=== PATIENT | male | born 1935 | race Caucasian/White ===

== ENCOUNTER 2017-12-11 10:46 | Emergency (ER) | payer MEDICARE, OTHER ==
[~2017-12-11] VITALS: Ht 180.3 cm; Wt 81.7 kg
[~2017-12-11 10:46] MED LIST: AMOCLA875 PO; ASPI81EC PO; DIGO.125 PO; DIGO.25 PO; JANTOVEN; Jantoven6 MG PO; LOSA25; LOSA25 PO; LOVA20 PO; METO100 PO; METO50; POTCHL20ER PO; WARF1 PO; WARF6 PO
[2017-12-11] MEDS ORDERED: Jantoven6 MG PO (10:56)
[2017-12-11 11:11] LABS: Source, Urine Clean Catch
[2017-12-11 11:14] LABS: Bilirubin, Urine Neg (Neg); Blood, Urine 5+ (Neg); Glucose Qualitative, Urine Neg (Neg); Ketones, Urine Neg (Neg); Leukocyte Esterase, Urine 1+ (Neg); Nitrite, Urine Neg (Neg); Protein, Urine 1+ (Neg); Specific Gravity, Urine 1.015 (1.003-1.022); Urobilinogen, Urine 2+ (Normal)
[2017-12-11 11:28] LABS: Appearance, Urine Clear (Clear); Color, Urine Yellow (P-Yellow)
[2017-12-11 11:29] LABS: Red Blood Cells, Urine TNTC /hpf (0-2); White Blood Cells, Urine 0-2 /hpf (0-5)
[2017-12-11 11:30] LABS: Bacteria Rare /hpf; Squamous Epithelial Cells Rare /hpf (Few)
[2017-12-11 11:42] LABS: BASOPHILS ABSOLUTE AUTO 0.05 K/mm3 (0.00-0.23); BASOPHILS PERCENT AUTO 1 % (0-2); EOSINOPHILS ABSOLUTE AUTO 0.09 K/mm3 (0.00-0.68); EOSINOPHILS PERCENT AUTO 1 % (0-6); Hematocrit 42.3 % (37.0-53.0); Hemoglobin 13.5 g/dL (13.5-17.5); IMMATURE GRAN ABSOLUTE AUTO 0.01 K/mm3 (0.00-0.10); IMMATURE GRAN PERCENT AUTO 0 % (0-1); LYMPHOCYTES ABSOLUTE AUTO 2.56 K/mm3 (0.84-5.20); LYMPHOCYTES PERCENT AUTO 32 % (21-46); MONOCYTES ABSOLUTE AUTO 0.66 K/mm3 (0.16-1.47); MONOCYTES PERCENT AUTO 8 % (4-13); Mean Corpuscular HGB 29.9 pg (26.0-34.0); Mean Corpuscular HGB Conc 31.9 g/dL (31.5-36.5); Mean Corpuscular Volume 94 fL (80-100); Mean Platelet Volume 10.9 fL (9.1-12.4); NEUTROPHILS ABSOLUTE AUTO 4.58 K/mm3 (1.96-9.15); NEUTROPHILS PERCENT AUTO 58 % (41-73); Platelet Count 125 K/mm3 (150-400); RDW Coefficient Variation 13.7 % (11.7-14.2); RDW Standard Deviation 47.4 fL (35.1-46.3); Red Blood Cell Count 4.51 M/mm3 (4.30-5.90); White Blood Cell Count 7.95 K/mm3 (4.00-11.30)
[2017-12-11 11:52] LABS: Prothrombin Time Results 21.3 Sec (9.7-11.5)
[2017-12-11 12:05] LABS: Alanine Aminotransfer (ALT/SGP 24 U/L (12-78); Albumin, Blood 3.5 g/dL (3.4-5.0); Albumin/Globulin Ratio 0.9 (0.8-1.8); Alk Phos 77 U/L (50-136); Anion Gap 8 mmol/L (6-16); Aspartate Aminotrans (AST/SGOT 26 U/L (12-37); Blood Urea Nitrogen 21 mg/dL (8-24); Bun/Creatinine Ratio 21.9 (12.0-20.0); CO2, Blood 28 mmol/L (21-32); Calcium, Blood 8.7 mg/dL (8.5-10.1); Chloride, Blood 105 mmol/L (98-108); Creatinine, Blood 0.96 mg/dL (0.60-1.20); Globulin, Blood 3.9 g/dL (2.2-4.0); Glomerular Filtration Rate >60 (60-); Glucose, Blood 159 mg/dL (70-99); Sodium, Blood 141 mmol/L (136-145); Total Protein, Blood 7.4 g/dL (6.4-8.2)
[2017-12-11] MEDS ORDERED: Norco 5-325 Ta1 EACH PO (13:12)
[2017-12-11] MEDS ORDERED: Flomax0.4 MG PO (13:12)
[2017-12-11] MEDS ORDERED: Zofran Odt4 MG SL (13:12)
[2017-12-11] MEDS ORDERED: Keflex500 MG PO (13:13)
== END 2017-12-11 14:32 | disposition home or self-care (01) ==
LOC: ER 10:46
PROVIDERS: Nurse Practitioner Family
DX: N13.2 Hydronephrosis with renal and ureteral calculous obstruction (principal); K57.30 Diverticulosis of large intestine without perforation or abscess without bleeding; I10 Essential (primary) hypertension; E78.00 Pure hypercholesterolemia, unspecified; Z79.899 Other long term (current) drug therapy; Z79.01 Long term (current) use of anticoagulants; Z90.49 Acquired absence of other specified parts of digestive tract; Z95.1 Presence of aortocoronary bypass graft; Z90.89 Acquired absence of other organs
CPT/HCPCS: 36415; 74176; 80053; 81001; 83690; 85025; 85610; 87086; 96361; 96374; 96375; 99284; J2270; J2405; J7030

== ENCOUNTER → 2018-07-23 | Outpatient (CLI) | payer MEDICARE, OTHER ==
[~2018-07-23] MED LIST changes: +Flomax0.4 MG PO; +Keflex500 MG PO; +Norco 5-325 Ta1 EACH PO; +Zofran Odt4 MG SL
[2018-07-23 18:09] LABS: Alanine Aminotransfer (ALT/SGP 22 U/L (12-78); Albumin, Blood 3.4 g/dL (3.4-5.0); Albumin/Globulin Ratio 1.1 (0.8-1.8); Alk Phos 76 U/L (50-136); Anion Gap 6 mmol/L (6-16); Aspartate Aminotrans (AST/SGOT 21 U/L (12-37); Bilirubin, Total 0.8 mg/dL (0.1-1.0); Blood Urea Nitrogen 17 mg/dL (8-24); Bun/Creatinine Ratio 18.6 (12.0-20.0); CO2, Blood 30 mmol/L (21-32); Calcium, Blood 8.8 mg/dL (8.5-10.1); Chloride, Blood 107 mmol/L (98-108); Creatinine, Blood 0.91 mg/dL (0.60-1.20); Globulin, Blood 3.1 g/dL (2.2-4.0); Glomerular Filtration Rate >60 (60-); Glucose, Blood 166 mg/dL (70-99); Potassium, Blood 4.5 mmol/L (3.5-5.5); Sodium, Blood 143 mmol/L (136-145); Total Protein, Blood 6.5 g/dL (6.4-8.2)
== END | disposition home or self-care (01) ==
LOC: LAB SHORT 16:41 → LAB 16:41
PROVIDERS: Internal Medicine Hematology & Oncology
DX: N20.0 Calculus of kidney (principal); E78.5 Hyperlipidemia, unspecified
CPT/HCPCS: 80053

== ENCOUNTER 2020-01-15 10:02 | Emergency (ER) | payer MEDICARE ==
[~2020-01-15] VITALS: Ht 175.3 cm; Wt 72.6 kg
[2020-01-15 11:01] LABS: BASOPHILS ABSOLUTE AUTO 0.02 K/mm3 (0.00-0.23); BASOPHILS PERCENT AUTO 1 % (0-2); EOSINOPHILS ABSOLUTE AUTO 0.03 K/mm3 (0.00-0.68); EOSINOPHILS PERCENT AUTO 1 % (0-6); Hematocrit 38.5 % (37.0-53.0); Hemoglobin 12.3 g/dL (13.5-17.5); IMMATURE GRAN ABSOLUTE AUTO 0.01 K/mm3 (0.00-0.10); IMMATURE GRAN PERCENT AUTO 0 % (0-1); LYMPHOCYTES ABSOLUTE AUTO 0.95 K/mm3 (0.84-5.20); LYMPHOCYTES PERCENT AUTO 22 % (21-46); MONOCYTES ABSOLUTE AUTO 0.29 K/mm3 (0.16-1.47); MONOCYTES PERCENT AUTO 7 % (4-13); Mean Corpuscular HGB Conc 31.9 g/dL (31.5-36.5); Mean Corpuscular Volume 94 fL (80-100); NEUTROPHILS ABSOLUTE AUTO 3.01 K/mm3 (1.96-9.15); NEUTROPHILS PERCENT AUTO 70 % (41-73); Platelet Count 87 K/mm3 (150-400); RDW Coefficient Variation 13.5 % (11.7-14.2); RDW Standard Deviation 46.3 fL (35.1-46.3); White Blood Cell Count 4.31 K/mm3 (4.00-11.30)
[2020-01-15 11:23] LABS: Alanine Aminotransfer (ALT/SGP 29 U/L (12-78); Albumin, Blood 3.2 g/dL (3.4-5.0); Alk Phos 84 U/L (50-136); Anion Gap 3 mmol/L (6-16); Aspartate Aminotrans (AST/SGOT 33 U/L (12-37); Bilirubin, Total 1.1 mg/dL (0.1-1.0); Blood Urea Nitrogen 19 mg/dL (8-24); Bun/Creatinine Ratio 20.7 (12.0-20.0); CO2, Blood 29 mmol/L (21-32); Calcium, Blood 8.6 mg/dL (8.5-10.1); Chloride, Blood 110 mmol/L (98-108); Creatinine, Blood 0.92 mg/dL (0.60-1.20); Globulin, Blood 3.3 g/dL (2.2-4.0); Glomerular Filtration Rate >60 (60-); Glucose, Blood 162 mg/dL (70-99); Potassium, Blood 4.2 mmol/L (3.5-5.5); Sodium, Blood 142 mmol/L (136-145); Total Protein, Blood 6.5 g/dL (6.4-8.2)
[2020-01-15] MEDS ORDERED: Motion Sickness25 M1 PO (12:03)
== END 2020-01-15 13:20 | disposition home or self-care (01) ==
LOC: ER 10:02
PROVIDERS: Emergency Medicine
DX: R42 Dizziness and giddiness (principal); E78.00 Pure hypercholesterolemia, unspecified; I10 Essential (primary) hypertension; Z79.899 Other long term (current) drug therapy
CPT/HCPCS: 80053; 85025; 93005; 93010; 99284-25

== ENCOUNTER → 2020-08-20 | Outpatient (CLI) | payer MEDICARE ==
[~2020-08-20] MED LIST changes: +Motion Sickness25 M1 PO
[2020-08-20 16:18] LABS: International Normalized Ratio 2.28; Prothrombin Time Results 23.3 Sec (9.7-11.5)
[2020-08-20 16:32] LABS: Alanine Aminotransfer (ALT/SGP 17 U/L (12-78); Albumin, Blood 3.6 g/dL (3.4-5.0); Albumin/Globulin Ratio 1.1 (0.8-1.8); Alk Phos 86 U/L (50-136); Anion Gap 2 mmol/L (6-16); Aspartate Aminotrans (AST/SGOT 24 U/L (12-37); Bilirubin, Total 0.8 mg/dL (0.1-1.0); Blood Urea Nitrogen 22 mg/dL (8-24); Bun/Creatinine Ratio 22.4 (12.0-20.0); CO2, Blood 33 mmol/L (21-32); Calcium, Blood 8.8 mg/dL (8.5-10.1); Chloride, Blood 107 mmol/L (98-108); Creatinine, Blood 0.98 mg/dL (0.60-1.20); Globulin, Blood 3.2 g/dL (2.2-4.0); Glomerular Filtration Rate >60 (60-); Glucose, Blood 162 mg/dL (70-99); Phosphorus, Blood 2.8 mg/dL (2.5-4.9); Potassium, Blood 4.4 mmol/L (3.5-5.5); Sodium, Blood 142 mmol/L (136-145); Total Protein, Blood 6.8 g/dL (6.4-8.2)
== END | disposition home or self-care (01) ==
LOC: LAB SHORT 14:24 → LAB 14:24
PROVIDERS: Internal Medicine Hematology & Oncology
DX: E53.8 Deficiency of other specified B group vitamins (principal); R00.1 Bradycardia, unspecified
CPT/HCPCS: 80053; 82607; 82746; 84100; 85610

== ENCOUNTER 2021-02-07 12:50 | Observation (INO) | payer MEDICARE ==
[~2021-02-07] VITALS: Ht 180.3 cm; Wt 69.0 kg
[~2021-02-07 12:50] MED LIST changes: -METO50; +METO50 PO
[2021-02-07 14:20] LABS: Calcium, Ionized (POC) 0.85 mmol/L (1.10-1.46); Chloride (POC) 109 mmol/L (98-108); Creatinine (POC) 0.9 mg/dL (0.8-1.3); Glucose (ISTAT POC) 108 mg/dL (70-99); Hemoglobin (POC) 10.9 g/dL (13.5-17.5); Potassium (POC) 4.9 mmol/L (3.5-5.5); Sodium (POC) 137 mmol/L (135-148); Total CO2 (POC) 23 mmol/L (21-32)
[2021-02-07 17:12] LABS: BASOPHILS ABSOLUTE AUTO 0.02 K/mm3 (0.00-0.23); BASOPHILS PERCENT AUTO 0 % (0-2); EOSINOPHILS ABSOLUTE AUTO 0.07 K/mm3 (0.00-0.68); EOSINOPHILS PERCENT AUTO 1 % (0-6); Hematocrit 35.6 % (37.0-53.0); Hemoglobin 11.5 g/dL (13.5-17.5); IMMATURE GRAN ABSOLUTE AUTO 0.02 K/mm3 (0.00-0.10); IMMATURE GRAN PERCENT AUTO 0 % (0-1); LYMPHOCYTES PERCENT AUTO 16 % (21-46); MONOCYTES ABSOLUTE AUTO 0.34 K/mm3 (0.16-1.47); MONOCYTES PERCENT AUTO 6 % (4-13); Mean Corpuscular HGB 30.1 pg (26.0-34.0); Mean Corpuscular HGB Conc 32.3 g/dL (31.5-36.5); Mean Corpuscular Volume 93 fL (80-100); NEUTROPHILS ABSOLUTE AUTO 4.28 K/mm3 (1.96-9.15); NEUTROPHILS PERCENT AUTO 76 % (41-73); Platelet Count 97 K/mm3 (150-400); RDW Coefficient Variation 13.3 % (11.7-14.2); RDW Standard Deviation 45.8 fL (35.1-46.3); Red Blood Cell Count 3.82 M/mm3 (4.30-5.90); White Blood Cell Count 5.63 K/mm3 (4.00-11.30)
[2021-02-07 17:23] LABS: International Normalized Ratio 1.18; Prothrombin Time Results 12.5 Sec (9.7-11.5)
[2021-02-07 17:25] LABS: Alanine Aminotransfer (ALT/SGP 23 U/L (12-78); Albumin, Blood 3.2 g/dL (3.4-5.0); Albumin/Globulin Ratio 0.8 (0.8-1.8); Alk Phos 97 U/L (50-136); Anion Gap 3 mmol/L (6-16); Aspartate Aminotrans (AST/SGOT 28 U/L (12-37); Bilirubin, Total 0.8 mg/dL (0.1-1.0); Blood Urea Nitrogen 17 mg/dL (8-24); Bun/Creatinine Ratio 20.5 (12.0-20.0); CO2, Blood 29 mmol/L (21-32); Calcium, Blood 8.5 mg/dL (8.5-10.1); Chloride, Blood 109 mmol/L (98-108); Creatinine, Blood 0.83 mg/dL (0.60-1.20); Globulin, Blood 3.8 g/dL (2.2-4.0); Glomerular Filtration Rate >60 (60-); Glucose, Blood 114 mg/dL (70-99); Potassium, Blood 4.3 mmol/L (3.5-5.5); Sodium, Blood 141 mmol/L (136-145)
[2021-02-07] MEDS ORDERED: WARF1 PO (17:56)
--- NOTE | 2021-02-07 18:55 | NUR ---
Arrival to unit Received report from Haven GIANG-RN. Patient arrived at approximately 1855. One bag of personal belongings with patient. Slide transfer with 3 assist. Reports L hip pain with movement. [place]. Settled to room, oriented to call light. Bed in lowest position, bed alarm on, call light near. Report handed to Vinny.
[2021-02-08 04:57] LABS: BASOPHILS ABSOLUTE AUTO 0.02 K/mm3 (0.00-0.23); BASOPHILS PERCENT AUTO 1 % (0-2); EOSINOPHILS ABSOLUTE AUTO 0.08 K/mm3 (0.00-0.68); EOSINOPHILS PERCENT AUTO 2 % (0-6); Hematocrit 33.7 % (37.0-53.0); IMMATURE GRAN ABSOLUTE AUTO 0.01 K/mm3 (0.00-0.10); IMMATURE GRAN PERCENT AUTO 0 % (0-1); LYMPHOCYTES ABSOLUTE AUTO 0.87 K/mm3 (0.84-5.20); LYMPHOCYTES PERCENT AUTO 21 % (21-46); MONOCYTES ABSOLUTE AUTO 0.33 K/mm3 (0.16-1.47); MONOCYTES PERCENT AUTO 8 % (4-13); Mean Corpuscular HGB Conc 32.6 g/dL (31.5-36.5); Mean Corpuscular Volume 92 fL (80-100); Mean Platelet Volume 11.2 fL (9.1-12.4); NEUTROPHILS ABSOLUTE AUTO 2.92 K/mm3 (1.96-9.15); NEUTROPHILS PERCENT AUTO 69 % (41-73); Platelet Count 89 K/mm3 (150-400); RDW Coefficient Variation 13.2 % (11.7-14.2); RDW Standard Deviation 44.5 fL (35.1-46.3); Red Blood Cell Count 3.67 M/mm3 (4.30-5.90); White Blood Cell Count 4.23 K/mm3 (4.00-11.30)
[2021-02-08 05:09] LABS: International Normalized Ratio 1.19; Prothrombin Time Results 12.6 Sec (9.7-11.5)
--- NOTE | 2021-02-08 05:19 | NUR ---
SPOOL WORKER SUMMARY NEW ADMIT AT START OF SHIFT. PT AAOX2, KNOWS NAME AND BUT IS FORGETFUL/CONFUSED AT TIMES ON WHERE HE IS. BED ALARM ON FOR SAFETY PT IS IMPULSIVE AND DOES NOT CALL FOR ASSISTANCE. PT HAS BASELINE DEMENTIA AND IS EXTREMELY [place], MAKING COMMUNICATION DIFFICULT. PT DENIES PAIN WHEN AT REST BUT DOES REPORT PAIN OF LEFT HIP/PELVIS WHEN MOVING AROUND. PT DENIES NEED OF PAIN MEDICATION. PT HAS USED URINAL IN THE BED WITH ASSISTANCE. ORTHO CONSULT TO BE CALLED IN WHEN OFFICE OPENS AT 0800 TODAY, WILL PASS ON INFORMATION TO DAY SHIFT RN. VSS, WILL CONTINUE TO MONITOR.
--- NOTE | 2021-02-08 14:19 | NUR ---
Review of patients advance directive and at family request filled out a polst. Pt is dnr with limited treatments. Avised physician and code status changed. Review of pt needs he denies headaches or shorness of breath just strong dull pain to his left thigh and hip area. nursing notified prn meds given for comfort.
--- NOTE | 2021-02-08 18:30 | NUR ---
Shift Summary AOx2 to self and city. Extremely [place], patient hears best if spoken to near L ear and reads lips. Bilateral hearing aids in place. Patient c/o pain with movement. Medicated x 1 for 8/10 pain prior to therapy. Worked with PT/OT. Kain DIAMOND in chart, awaiting signature from doctor. Weight bearing as tolerated. Skin tear to L elbow cleansed and steri strips placed. DNR band on R wrist, verified with Ally RN. Uses urinal at bedside independently. WCTM.
[2021-02-09 05:05] LABS: International Normalized Ratio 1.25; Prothrombin Time Results 13.2 Sec (9.7-11.5)
--- NOTE | 2021-02-09 05:42 | NUR ---
SHIFT SUMMARY PT PLEASANTLY CONFUSED. VERY LITTLE TRAVERSE. PT DID SET OFF HIS BED ALARM WHENEVER HE NEEDED TO USE THE RESTROOM. EASILY REDIRECTABLE BACK TO BED. ASSISTED W/ URINAL. PT PAINFUL W/ MOVEMENT, DENIES PAIN WHILE RESTING. SKIN TEAR TO LEFT FOREARM. PACEMAKER LEFT CHEST WALL. NO ACUTE CHANGES THIS EVENING. VITAL SIGNS STABLE. WILL CONTINUE TO MONITOR AND REPORT TO DAY RN.
--- NOTE | 2021-02-09 18:21 | NUR ---
SHIFT SUMMARY ANA CONFUSED THIS SHIFT, PLEASANTLY CALM AND CONFUSED FIRST HALF OF DAY, MORE AGITATED STARTING AROUND 530PM, SETTING OFF BED ALARM X2. REDIRECTED, BED ALARM ON. PAINFUL LLE, MEDICATED WITH TYELNOL AND OXY PER EMAR. CONTINENT IN URINAL AND BSC THIS SHIFT. VISITED. TOOK MEDS PRESCRIBED. AW PLACEMENT. CALL LIGHT IN REACH, BED ALARM ON, WCTM
[2021-02-10 05:02] LABS: International Normalized Ratio 1.15; Prothrombin Time Results 12.2 Sec (9.7-11.5)
--- NOTE | 2021-02-10 06:01 | NUR ---
STONE MILL OPERATOR SUMMARY PT A/O X 0-1. SLEPT ON AND OFF. PT HAS TRIED TO GET UP A FEW TIMES DURING THE NIGHT. BED ALARM HAS BEEN ON ALL SHIFT. MEDICATED FOR PAIN AND AGITATION. PT IS VERY [place], CONFUSED AND HARD TO RE-DIRECT. BUSY APRON HAS BEEN PROVIDED FOR PT TO INTERACT WITH. CALL LIGHT WITHIN REACH, BED ALARM ON. VSS.
--- NOTE | 2021-02-10 11:11 | NUR ---
0900 PATIENT IS COUGHING WITH PO INTAKE. BREAKFAST HELD. MD NOTIFIED AND WATCH TECHNICIAN EVAL ORDER PLACED. PER , PATIENT HAS BEEN COUGHING AT HOME WITH PO INTAKE FOR A "LONG TIME". PATIENT IS FOLLOWING DIRECTIONS, BUT DOES NOT ANSWER QUESTIONS APPROPRIATLY. PER SPEECH, PATIENT IS STRICT NPO, NO PO MEDS.
--- NOTE | 2021-02-10 13:07 | NUR ---
Joint visit to Pt and his spouse Caroline with Dr Taylor, this RN, and Tiffany Barriga. Pt resting in bed and spouse is at bedside. Dr Taylor provides update of ST evaluation and discusses options. Comfort Care and hospice also discussed. Spouse Caroline elects to pursue comfort care and hospice. Caroline reports understanding of comfort care and hospice philosophy. Hospice agencies discussed with Caroline wanting agency that is available the soonest. This RN remained behind for continued support. Offered therapeutic listening and answered questions. Completed new POLST with Caroline. Pt's wishes are DNR and Comfort Measures Only. Obtained Dr Taylor signature and will deliver copy to medical records. Original POLST given to Caroline with instructions to take home and hang on refridgerator. Spoke with Bedside EVELIN Briceno and discussed case. Palliative Care will remain available.
--- NOTE | 2021-02-11 01:55 | NUR ---
ROXANOL HAS NOT WORKED TO HELP PT RELAX. HOSPITALIST DR. RUELAS CALLED. WILL WAIT FOR A CALL BACK ABOUT MORE COMFORT STATUS MEDS.
--- NOTE | 2021-02-11 03:21 | NUR ---
REGISTER REPAIRER SUMMARY PT HAS BEEN AWAKE AND REACHING OUT INTO THE AIR MOST OF THE SHIFT. RAXANOL HELPS LITTLE TO NONE. PT HAS NON-SENSICAL SPEECH, VERY [place]. BILATERAL HEARING AIDS IN CHARGING POD FOR OVERNIGHT. PT HAS SLEPT SINCE ATIVAN BEEN ADDED ON BOARD. CALL LIGHT WITHIN REACH, BED ALARM ON.
--- NOTE | 2021-02-11 14:00 | NUR ---
Comfort Care Visit Pt resting in bed with his eyes closed. Pt appears comfortable with no S/S of distress at this time. This RN did not disturb Pt at this time. Spoke with Bedside RN Kaity and discussed case. Pt becames axious during nightman. Ativan given and Pt has been resting comfortably since. Palliative Care will remain available.
--- NOTE | 2021-02-11 15:01 | NUR ---
DISCHARGING HOME WITH [facility] ON SUNDAY, PER PALLIATIVE CARE. PATIENT HAS BEEN SLEEPING THROUGHOUT SHIFT WITHOUT SIGNS OF DSYPNEA OR PAIN.
--- NOTE | 2021-02-12 04:18 | NUR ---
SUMMARY PT HAD SOME ANXIETY AND NOTED DISCOMFORT. PT HAS BEEN TX PER EMAR. PT FAMILY VISITED PT THIS EVENING. NO NEW ISSUES NOTED. PT CURRENTLY SLEEPING AND APPEARS COMFORTABLE. CALL LIGHT IN REACH AND BED ALARM ON.
[2021-02-12] MEDS ORDERED: DOCU100 PO (10:07)
[2021-02-12] MEDS ORDERED: ACET325 PO (10:07)
[2021-02-12] MEDS ORDERED: ATROPINE SULFATE2 M5 SL (10:08)
[2021-02-12] MEDS ORDERED: MORP20L SL (10:09)
[2021-02-12] MEDS ORDERED: OLAN10 PO (10:10)
[2021-02-12] MEDS ORDERED: ONDA4ODT MM (10:10)
[2021-02-12] MEDS ORDERED: SENN187 PO (10:10)
--- NOTE | 2021-02-12 11:00 | NUR ---
PAL CARE COMFORT CARE VISIT MADE - Pt sleeping with furrowed brow, grimacing and groaning noted. DRILL DOCTOR in to check attends for dryness before transport, anticipated at this time. Attends were dry. Pt's extremeties cool to touch x 4. Skin dry and cool. Pt is going home with Hospice services in his home. and granddau plan to be pt's caregivers. Spoke with DRILL DOCTOR, RN and CM re: plans in place. Pt was medicated for pain and in prep for transport 30 minutes ago per RN.
--- NOTE | 2021-02-12 11:09 | NUR ---
SUMMARY/DISCHARGE PT DISCHARGED TO HOME ON HOSPICE, FAMILY NOTIFIED, TRANSPORTATION ARRANGED BY CARE MANAGEMENT, PT TAKEN OUT SAFELY VIA GURNEY
== END 2021-02-12 11:04 | disposition hospice, home (50) ==
LOC: ER 12:50 → MEDS 12:51 → ER 17:41 → MEDS 17:41
PROVIDERS: Emergency Medicine; ADMIT Internal Medicine
DX: S32.592A Other specified fracture of left pubis, initial encounter for closed fracture (principal); S32.119A Unspecified Zone I fracture of sacrum, initial encounter for closed fracture; W01.0XXA Fall on same level from slipping, tripping and stumbling without subsequent striking against object, initial encounter; Y93.89 Activity, other specified; Y92.007 Garden or yard of unspecified non-institutional (private) residence as the place of occurrence of the external cause; I48.20 Chronic atrial fibrillation, unspecified; I10 Essential (primary) hypertension; R13.11 Dysphagia, oral phase; D63.8 Anemia in other chronic diseases classified elsewhere; D69.3 Immune thrombocytopenic purpura; F03.90 Unspecified dementia, unspecified severity, without behavioral disturbance, psychotic disturbance, mood disturbance, and anxiety; H91.10 Presbycusis, unspecified ear; K57.30 Diverticulosis of large intestine without perforation or abscess without bleeding; Z79.01 Long term (current) use of anticoagulants; Z95.0 Presence of cardiac pacemaker; Z66 Do not resuscitate
CPT/HCPCS: 36415; 70450; 71046; 72192; 73552; 80047; 80053; 85014; 85025; 85610; 86850; 86900; 86901; 92610; 93005; 93010; 96374; 96375; 96376; 97110-CQ; 97116; 97162; 97166; 97530; 97530-CQ; 99285-25; A9270; G0378; J2060; J2270